=== PATIENT | female | born 1995 | race Two or more races ===

== ENCOUNTER 2020-08-08 00:49 | Inpatient (IN) | payer OTHER ==
[~2020-08-08] VITALS: Ht 157.5 cm; Wt 3.2 kg
[2020-08-08] MEDS ORDERED: PRENATAL CAPLE1 EAC1 PO (01:39)
[2020-08-08] MEDS ORDERED: CHILDREN'S ASPI81 MG PO (01:40)
[2020-08-08] MEDS ORDERED: FOLIC ACID20 MG PO (01:40)
== END 2020-08-11 13:01 | DRG 787 ==
LOC: LDR 00:49 → OB/GYN 00:49
PROVIDERS: ADMIT Specialist; ATTEND Specialist
PROC: 4A0HXFZ Measurement of Products of Conception, Cardiac Rhythm, External Approach (ICD-10-PCS; 2020-08-08)
PROC: 10D00Z1 Extraction of Products of Conception, Low, Open Approach (ICD-10-PCS; principal; 2020-08-08 15:00)
DX: O82 Encounter for cesarean delivery without indication (principal); D62 Acute posthemorrhagic anemia; O62.2 Other uterine inertia; O33.8 Maternal care for disproportion of other origin; O42.90 Premature rupture of membranes, unspecified as to length of time between rupture and onset of labor, unspecified weeks of gestation; O99.02 Anemia complicating childbirth; Z3A.38 38 weeks gestation of pregnancy; Z37.0 Single live birth